=== PATIENT | male | born 1985 | race African-American/Black ===

== ENCOUNTER 2016-06-05 11:22 | Emergency (ER) | payer SELFPAY ==
[~2016-06-05] VITALS: Ht 177.8 cm; Wt 90.9 kg
[2016-06-05 11:26] VITALS: BP 135/99; PULSE 80; RESP 15; TEMP 97.9; O2SAT 98
[2016-06-05] MEDS ORDERED: LURA20TA PO (12:27)
[2016-06-05] MEDS ORDERED: TRIL150T PO (12:27)
[2016-06-05] MEDS ORDERED: AMIT100T2 PO (12:27)
[2016-06-05] MEDS ORDERED: NAPR500T PO (13:27)
[2016-06-05] MEDS ORDERED: CYCL1TAB29 PO (13:27)
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
[2016-06-05] MEDS ORDERED: IBUPROFEN 800 MG TAB PO ONE (13:30)
[2016-06-05] MEDS ORDERED: CYCLOBENZAPRINE HCL 10 MG TAB PO ONE (13:30)
== END 2016-06-05 13:30 | disposition left against medical advice (07) ==
LOC: NEPB 11:22
DX: S39.012A Strain of muscle, fascia and tendon of lower back, initial encounter (principal); Z53.20 Procedure and treatment not carried out because of patient's decision for unspecified reasons; X50.9XXA Other and unspecified overexertion or strenuous movements or postures, initial encounter; Y92.488 Other paved roadways as the place of occurrence of the external cause
CPT/HCPCS: 99283

== ENCOUNTER 2017-02-09 16:53 | Emergency (ER) | payer SELFPAY ==
[~2017-02-09] VITALS: Ht 177.8 cm; Wt 88.5 kg
[~2017-02-09 16:53] MED LIST: AMIT100T2 PO; CYCL1TAB29 PO; LURA20TA PO; NAPR500T PO; TRIL150T PO
[2017-02-09 16:58] VITALS: BP 164/110; PULSE 97; RESP 17; TEMP 98; O2SAT 97
[2017-02-09] MEDS ORDERED: SILV1CRE20 TOPICAL (17:15)
[2017-02-09] MEDS ORDERED: SILVER SULFADIAZINE 1% CR 50 GM JAR TOPICAL ONE (17:15)
[2017-02-09] MEDS ORDERED: oxyCODONE/ACETAMINOPHEN 5 MG/325 MG TAB PO ONE (17:15)
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
[2017-02-09] MEDS ORDERED: PERC5TAB12 PO (17:19)
== END 2017-02-09 17:35 | disposition home or self-care (01) ==
LOC: NEPK 16:53
DX: T22.012A Burn of unspecified degree of left forearm, initial encounter (principal); T23.052A Burn of unspecified degree of left palm, initial encounter; I10 Essential (primary) hypertension; X16.XXXA Contact with hot heating appliances, radiators and pipes, initial encounter; Y93.89 Activity, other specified
CPT/HCPCS: 16000